=== PATIENT | male | born 1945 | race Hispanic/Latino ===

== ENCOUNTER → 2019-01-21 | Outpatient (CLI) | payer OTHER | END | disposition home or self-care (01) | LOC: EDUNIT# 11:20 → SHCH 11:57 | PROVIDERS: ATTEND Internal Medicine Cardiovascular Disease | DX: I73.9 Peripheral vascular disease, unspecified (principal) | CPT/HCPCS: 93925 ==

== ENCOUNTER → 2019-01-22 | Outpatient (CLI) | payer OTHER ==
[~2019-01-22] VITALS: Ht 175.3 cm; Wt 75.7 kg
[~2019-01-22] MED LIST: REGADENOSON 0.4 MG/5 ML PF SYG IVP SCH
== END | disposition home or self-care (01) ==
LOC: SHCH 07:53 → EDUNIT# 08:40
PROVIDERS: ATTEND Internal Medicine Cardiovascular Disease
DX: R06.00 Dyspnea, unspecified (principal)
CPT/HCPCS: 78452; 93017; 96374; A9500 ×2; J2785

== ENCOUNTER → 2023-07-26 | Outpatient (CLI) | payer OTHER ==
[~2023-07-26] MED LIST changes: +AMLO-258 PO; +ATOR40TA69 PO; +FERS325 PO; +FLUT1BLS3 IH; +FURO20TA4 PO; +HYDR25TA PO; +LEVO50TA11 PO; +METO-409 PO; -REGADENOSON 0.4 MG/5 ML PF SYG IVP SCH; +SODI650T PO
== END | disposition home or self-care (01) ==
LOC: RAH 12:28
PROVIDERS: ATTEND Student in an Organized Health Care Education/Training Program
DX: Z01.818 Encounter for other preprocedural examination (principal); N18.6 End stage renal disease
CPT/HCPCS: 93970; 93971

== ENCOUNTER 2023-08-12 06:27 | Day surgery (SDC) | payer OTHER ==
[2023-08-06 14:54] LABS: BASOPHILS # (AUTO) 0.02 K/uL (0.00-0.20); BASOPHILS % (AUTO) 0.2 % (0.0-5.0); EOSINOPHILS # (AUTO) 0.17 K/uL (0.00-0.70); EOSINOPHILS % (AUTO) 1.9 % (0.0-8.0); HEMATOCRIT 32.2 % (42-54); IMMATURE GRANULOCYTE ABSOLUTE 0.04 K/uL (0-1); LYMPHOCYTES # (AUTO) 1.6 K/uL (1.0-4.8); LYMPHOCYTES % (AUTO) 18.5 % (21.0-51.0); MEAN CORPUSCULAR HEMOGLOBIN 30.1 pg (27.0-33.0); MEAN CORPUSCULAR HGB CONC 33.5 g/dL (32.0-36.0); MEAN CORPUSCULAR VOLUME 89.7 fL (79-99); MONOCYTES # (AUTO) 0.7 K/uL (0.1-1.0); MONOCYTES % (AUTO) 7.4 % (3.0-13.0); NEUTROPHILS # (AUTO) 6.3 K/uL (1.8-7.7); NEUTROPHILS % (AUTO) 71.5 % (40.0-77.0); PLATELET COUNT (AUTO) 217 K/uL (130-400); RED BLOOD CELL COUNT(AUTO) 3.59 MIL/uL (4.50-6.20); RED CELL DISTRIBUTION WIDTH 13.1 % (11.0-15.5); WHITE BLOOD COUNT (AUTO) 8.8 K/uL (4.8-10.8)
[2023-08-06 15:03] VITALS: BP 133/63; PULSE 61; RESP 13
[2023-08-06 15:07] LABS: INR 0.94 (0.85-1.15); PROTHROMBIN TIME 10.9 SEC (9.6-11.6)
[2023-08-06 15:09] LABS: PARTIAL THROMBOPLASTIN TIME 30.2 SEC (26.3-35.5)
[2023-08-06 15:12] LABS: BILIRUBIN,TOTAL 0.5 mg/dL (0.2-1.0); CREATININE 5.4 mg/dL (0.5-1.5)
[2023-08-09 09:10] VITALS: BP 181/78; PULSE 66; RESP 18
[2023-08-09 09:55] LABS: CREATININE 5.2 mg/dL (0.5-1.5); POTASSIUM 4.9 mmol/L (3.5-5.1)
[2023-08-12] VITALS (14 sets, daily range): BP systolic 128–184; BP diastolic 62–79; PULSE 62–69; RESP 10–18
[~2023-08-12] VITALS: Ht 177.8 cm; Wt 70.7 kg
[~2023-08-12 06:27] MED LIST changes: +0.9% NACL 500ML IV.SOLN 500 ML IV ONE; +BUPIVACAINE/PF 0.25% 10ML VIAL IJ ONE; +CEFAZOLIN SODIUM 2 GM VIAL ONE; +LIDOCAINE HCL 1% 10 ML VIAL ONE
[2023-08-12] MEDS ORDERED: 0.9% NACL 500ML IV.SOLN 500 ML IV ONE (06:47)
[2023-08-12] MEDS ORDERED: FAMOTIDINE 20MG VIAL IV ONE (06:55)
[2023-08-12] MEDS ORDERED: SUGAMMADEX SODIUM 200 MG/2 ML VIAL IV ONE (06:55)
[2023-08-12 07:06] LABS: CREATININE 4.9 mg/dL (0.5-1.5); POTASSIUM 4.3 mmol/L (3.5-5.1)
[2023-08-12] MEDS ORDERED: LIDOCAINE PF 100MG/5ML (2%) SYRINGE 5ML ONE (07:08)
[2023-08-12] MEDS ORDERED: GLYCOPYRROLATE 1 MG/5 ML SYRINGE ONE (07:08)
[2023-08-12] MEDS ORDERED: PROPOFOL 10 MG/ML 20ML VIAL IV ONE ×2 (07:08→09:27)
[2023-08-12] MEDS ORDERED: ROCURONIUM 10MG/1ML SYR 10 MG/ML ML ONE (07:08)
[2023-08-12] MEDS ORDERED: FENTANYL CITRATE PF 50 MCG/1 ML 2ML VIAL ONE (07:09)
[2023-08-12] MEDS ORDERED: PHENYLEPHRINE HCL 10 MG/ML 1ML VIAL IV ONE (07:09)
[2023-08-12] MEDS: CEFAZOLIN SODIUM 2 GM VIAL ONE ×2 (07:12→09:15)
[2023-08-12] MEDS ORDERED: BUPIVACAINE/PF 0.25% 30ML VIAL IJ ONE (08:48)
[2023-08-12] MEDS ORDERED: LIDOCAINE HCL 1% MDV 50ML VIAL ONE (08:48)
[2023-08-12] MEDS ORDERED: NEOSTIGMINE 5MG/5ML SYR IV ONE (09:27)
[2023-08-12] MEDS ORDERED: ONDANSETRON 4MG INJ ONE (09:48)
== END 2023-08-12 11:15 | disposition home or self-care (01) ==
LOC: DAH 06:27
PROVIDERS: ATTEND Student in an Organized Health Care Education/Training Program
DX: N18.6 End stage renal disease (principal); I12.0 Hypertensive chronic kidney disease with stage 5 chronic kidney disease or end stage renal disease; E11.22 Type 2 diabetes mellitus with diabetic chronic kidney disease; J44.9 Chronic obstructive pulmonary disease, unspecified; E78.5 Hyperlipidemia, unspecified; Z99.2 Dependence on renal dialysis; Z82.49 Family history of ischemic heart disease and other diseases of the circulatory system; Z80.9 Family history of malignant neoplasm, unspecified; Z72.89 Other problems related to lifestyle; Z87.891 Personal history of nicotine dependence; Z79.899 Other long term (current) drug therapy; Z98.890 Other specified postprocedural states
CPT/HCPCS: 80053; 85025; 85610; 85730; 86850 ×3; 86900 ×3; 86901 ×3; 86156 ×2; 86870 ×2; 36415 ×3; 93005; 80048 ×2; 82948 ×4; 36821; A6260; A4663 ×2; J7040 ×3; J1644 ×2; A4215 ×2; A4223 ×2; A4222 ×2; A4221 ×2; J7030; J3490 ×3; J2710; J0665; J2001; J2704 ×2; J2405; J2371; J0690; A4649 ×3; A4600; J3010; G0168